=== PATIENT | female | born 1990 | race Caucasian/White ===

== ENCOUNTER 2017-08-05 16:49 | Outpatient (CLI) | payer OTHER ==
--- NOTE | 2017-08-05 19:56 | Magnetic Resonance Report ---
FINAL REPORT EXAM: MR ABDOMEN WO CON HISTORY: APPENDICITIS TECHNIQUE: Multiplanar MRI of the abdomen. No IV contrast administered. PRIORS: None. FINDINGS: Gallbladder and biliary ducts without significant abnormality. Liver, spleen, pancreas, kidneys and adrenal glands without significant abnormality. Visualized bowel grossly unremarkable. No significant free peritoneal fluid or loculated fluid collection. Abdominal aorta is non-aneurysmal. Visualized lung bases grossly unremarkable. IMPRESSION: 1. No acute findings.
--- NOTE | 2017-08-05 20:00 | Magnetic Resonance Report ---
FINAL REPORT EXAM: MR PELVIS WO CON HISTORY: APPENDICITIS TECHNIQUE: Multiplanar MRI of the pelvis. No IV contrast administered. PRIORS: None. FINDINGS: Gravid uterus incidentally noted. Bowel grossly unremarkable. Appendix is not confidently identified, but no significant inflammatory change is seen in the pericecal region. No significant free peritoneal fluid or loculated fluid collection. Abdominal aorta non-aneurysmal. Bony pelvis grossly unremarkable. IMPRESSION: 1. Gravid uterus. 2. Nonvisualization of the appendix, without significant inflammatory sequelae. Clinical correlation with appropriate laboratory values and followup may be warranted.
== END 2017-08-05 16:50 | disposition home or self-care (01) ==
LOC: MRI 16:49
PROVIDERS: ATTEND Surgery
DX: K35.80 Unspecified acute appendicitis (principal)
CPT/HCPCS: 72195; 74181

== ENCOUNTER 2017-09-03 21:27 | Emergency (ER) | payer OTHER ==
--- NOTE | 2017-09-04 01:40 | Emergency Department Report ---
- General Chief complaint: Skin/Abscess/Foreign Body Stated complaint: BOIL Time Seen by Provider: 09/04/17 00:55 Source: patient Mode of arrival: Ambulatory Limitations: No Limitations - History of Present Illness Initial comments: 26-year-old female past medical history none approximately 11 weeks presents with complaint of one month of abscess to right middle buttock. Patient is awake alert and oriented 3 not in acute distress fully lucid. Denies fevers or chills denies any drainage. Urinating and defecating without difficulty. Denies any abdominal pain or vaginal bleeding. States it is approximately the size of a golf ball on her right buttock complaint: abscess/boil Onset/Timin -: month(s) Location: buttocks Severity: moderate Severity scale (0 -10): 5 Quality: aching Consistency: intermittent Improves with: none Worsens with: none Context: none - Related Data Previous Rx's Medication Instructions Recorded Last Taken Type Acetaminophen [Acetaminophen TAB] 500 mg PO Q6HR PRN #30 tablet 09/04/17 Unknown Rx Cephalexin [Keflex] 500 mg PO Q12HR #10 cap 09/04/17 Unknown Rx Allergies Allergy/AdvReac Type Severity Reaction Status Date / Time No Known Allergies Allergy Verified 09/03/17 22:26 Abscess Boil HPI - HPI Chief Complaint: Skin/Abscess/Foreign Body Stated Complaint: BOIL Time Seen by Provider: 09/04/17 00:55 Home Medications: Previous Rx's Medication Instructions Recorded Last Taken Type Acetaminophen [Acetaminophen TAB] 500 mg PO Q6HR PRN #30 tablet 09/04/17 Unknown Rx Cephalexin [Keflex] 500 mg PO Q12HR #10 cap 09/04/17 Unknown Rx Allergies/Adverse Reactions: Allergies Allergy/AdvReac Type Severity Reaction Status Date / Time No Known Allergies Allergy Verified 09/03/17 22:26 ED Review of Systems ROS: Stated complaint: BOIL Other details as noted in HPI Constitutional: denies: chills, fever Eyes: denies: eye pain, eye discharge, vision change ENT: denies: ear pain, throat pain Respiratory: denies: cough, shortness of breath, wheezing Cardiovascular: denies: chest pain, palpitations Endocrine: no symptoms reported Gastrointestinal: denies: abdominal pain, nausea, diarrhea Genitourinary: denies: urgency, dysuria, discharge Musculoskeletal: denies: back pain, joint swelling, arthralgia Skin: as per HPI. denies: rash, lesions Neurological: denies: headache, weakness, paresthesias Psychiatric: denies: anxiety, depression Hematological/Lymphatic: denies: easy bleeding, easy bruising ED Past Medical Hx - Past Medical History Previous Medical History?: No - Surgical History Past Surgical History?: Yes Additional Surgical History: x1 - Social History Smoking Status: Never Smoker Substance Use Type: None - Medications Home Medications: Home Medications Medication Instructions Recorded Confirmed Last Taken Type Acetaminophen [Acetaminophen TAB] 500 mg PO Q6HR PRN #30 tablet 09/04/17 Unknown Rx Cephalexin [Keflex] 500 mg PO Q12HR #10 cap 09/04/17 Unknown Rx ED Physical Exam - General Limitations: No Limitations General appearance: alert, in no apparent distress - Head Head exam: Present: atraumatic, normocephalic - Eye Eye exam: Present: normal appearance, PERRL, EOMI - ENT ENT exam: Present: mucous membranes moist - Neck Neck exam: Present: normal inspection - Respiratory Respiratory exam: Present: normal lung sounds bilaterally. Absent: respiratory distress - Cardiovascular Cardiovascular Exam: Present: regular rate, normal rhythm. Absent: systolic murmur, diastolic murmur, rubs, gallop - GI/Abdominal GI/Abdominal exam: Present: soft, normal bowel sounds - Extremities Exam Extremities exam: Present: normal inspection - Back Exam Back exam: Present: normal inspection - Neurological Exam Neurological exam: Present: alert, oriented X3, CN II-XII intact, normal gait - Psychiatric Psychiatric exam: Present: normal affect, normal mood - Skin Skin exam: Present: warm, dry, intact, normal color. Absent: rash - Expanded Skin Exam Expanded Type of lesion: Present: abscess Description of rash: Present: tenderness, erythematous, fluctuant 1 - Pilonidal abscess here about 5 cm in diameter ED Course Vital Signs 09/03/17 09/03/17 09/04/17 21:42 22:27 01:56 Temperature 99.5 F 99.5 F 99.2 F Pulse Rate 94 H 100 H 81 Respiratory 18 18 16 Rate Blood Pressure 114/63 114/63 Blood Pressure 101/64 [Left] O2 Sat by Pulse 100 99 97 Oximetry - I & D Right Medial Buttocks Type of Procedure: Simple Site: right medial buttock near pilonidal cleft Blade Size: 11 I & D Procedure: betadine prep, gauze wick placed Progress: Area infiltrated with lidocaine 1% with epinephrine. Good local anesthesia achieved. Cleaned with iodine. Single stab incision made approximately 1 cm overlying area of fluctuance. Moderate amount of purulent drainage. Significant decompression achieved via manual decompression. Wound culture sent. Approximately 4 inches of quarter-inch Xeroform gauze placed and wound. Covered with gauze afterward. Procedure tolerated well with minimal bleeding. ED Medical Decision Making - Medical Decision Making A/P: Pilonidal abscess 1-cultures sent 2-incision and drainage successful, patient experienced significant relief of her pain 3-Tylenol when necessary this patient is . Short course Keflex 4- advised patient to remove packing in 12-24 hours or to return to the ED for packing removal Critical care attestation.: If time is entered above; I have spent that time in minutes in the direct care of this critically ill patient, excluding procedure time. ED Disposition Clinical Impression: Pilonidal cyst with abscess, Encounter for incision and drainage procedure Disposition: TO HOME OR SELFCARE Is pt being admited?: No Does the pt Need Aspirin: No Condition: Stable Instructions: Abscess Incision and Drainage (ED), Abscess (ED), Acute Wound Care (ED) Prescriptions: Acetaminophen [Acetaminophen TAB] 500 mg PO Q6HR PRN #30 tablet PRN Reason: Pain , Severe (7-10) Cephalexin [Keflex] 500 mg PO Q12HR #10 cap Referrals: IVON SHORT MD [Primary Care Provider] - 3-5 Days [facility] [Provider Group] - 3-5 Days Forms: Accompanied Note, Work/School Release Form(ED) Time of Disposition: 03:03
[2017-09-04 01:58] VITALS: BP 101/64
[2017-09-04] MEDS ORDERED: TYLENOL PO ONE (02:57)
== END 2017-09-04 03:26 | disposition home or self-care (01) ==
LOC: ED 21:27
DX: O26.891 Other specified pregnancy related conditions, first trimester (principal); L05.01 Pilonidal cyst with abscess; Z3A.11 11 weeks gestation of pregnancy
CPT/HCPCS: 87116

== ENCOUNTER 2018-03-09 09:14 | Inpatient (IN) | payer OTHER ==
[2018-03-09] MEDS ORDERED: PITOCin/NS 20 UNIT/1000ML DRIP 20,000 MILLIUNITS/1,000 ML BAG IV ONE (09:26)
[2018-03-09] MEDS ORDERED: XYLOCAINE 2% INFILTRATI ONE ×2 (09:40)
[2018-03-09] MEDS ORDERED: METHERGINE IM ONE (09:41)
--- NOTE | 2018-03-09 09:58 | History and Physical Report ---
History of Present Illness Date of examination: 03/09/18 Date of admission: 03/09/18 09:14 Chief complaint: contractions History of present illness: 27y/o @ 38+2 weeks presents in active labor with advanced cervical dilation of 6cm and SROM. The patient has a prior history of delivery. She initiated care @ 7 weeks ega. Patient is GBS and HSV II negative. Past History Past Medical History: no pertinent history Past Surgical History: section Social history: - Obstetrical History Expected Date of Delivery: 03/21/18 Actual Gestation: 38 Week(s) 2 Day(s) : 4 Para: 1 Hx # Term Pregnancies: 1 Number of Pregnancies: 0 Spontaneous Abortions: 1 Induced : 1 Number of Living Children: 1 Medications and Allergies Allergies Allergy/AdvReac Type Severity Reaction Status Date / Time No Known Allergies Allergy Verified 09/03/17 22:26 Home Medications Medication Instructions Recorded Confirmed Last Taken Type Amoxicillin 500 mg PO BID #20 capsule 01/09/18 Unknown Rx Review of Systems All systems: negative Genitourinary: vaginal bleeding, leakage of fluid, pelvic pain, contractions - Vital Signs Vital signs: Vital Signs Pulse BP 88 111/56 03/09/18 09:45 03/09/18 09:45 Temp Pulse Resp BP Pulse Ox 88 111/56 03/09/18 09:45 03/09/18 09:45 - Physical Exam Breasts: Positive: deferred Cardiovascular: Regular rate Lungs: Positive: Clear to auscultation Abdomen: Positive: normal appearance Results All other labs normal. Assessment and Plan - Patient Problems (1) Previous delivery affecting Current Visit: Yes Status: Acute Plan to address problem: admit to L&D (2) Active labor at term Current Visit: Yes Status: Acute (3) Spontaneous rupture of membranes Current Visit: Yes Status: Acute
[2018-03-09] MEDS ORDERED: MILK OF MAGNESIA PO PRN (10:02)
[2018-03-09] MEDS ORDERED: TUCKS PAD TP PRN (10:02)
[2018-03-09] MEDS ORDERED: PHENERGAN PO PRN (10:02)
[2018-03-09] MEDS ORDERED: ZOFRAN IV PRN (10:02)
[2018-03-09] MEDS ORDERED: NORCO 5/325 PO PRN (10:02)
[2018-03-09] MEDS ORDERED: BENADRYL PO PRN (10:02)
[2018-03-09] MEDS ORDERED: PHENERGAN PR PRN (10:02)
[2018-03-09] MEDS ORDERED: LANSINOH TP PRN (10:02)
[2018-03-09] MEDS ORDERED: TYLENOL PO PRN (10:02)
[2018-03-09] MEDS ORDERED: DULCOLAX PR PRN (10:02)
--- NOTE | 2018-03-09 10:02 | Procedure Note ---
OB Delivery Note - Delivery Date of Delivery: 03/09/18 Surgeon: CINTHYA MCCONNELL Estimated blood loss: 200cc - Vaginal Delivery presentation: vertex Delivery position: OA Intrapartum events: precipitous labor- <3hr Delivery monitor: external FHT Route of delivery: vacuum extraction Indicators for instrumentation: nonreassuring FHR tracing Delivery placenta: spontaneous Delivery cord: 3 umbilical vessels Episiotomy: none Delivery laceration: 2nd degree Delivery repair: vicryl Anesthesia: local Delivery comments: The patient rapidly progressed to C/C/+2 and began pushing. During her second stage of labor, the tracing demonstrating prolonged bradycardia. A Kiwi vacuum was applied at +3 station and the patient delivered with one set of pulls a liveborn male infant with apgars of 8/9. The infant was bulb suctioned. The cord was clamped and cut and infant placed on the patient's abdomen. The placenta delivered spontaneously intact with a 3VC. The patient sustained a midline 2nd degree laceration. The site was injected with lidocaine and repaired in normal fashion with 2-0 vicryl. Infant weight of 8lbs 6oz. EBL 200ml - Infant A at 1 minute: 8 at 5 minutes: 9 Infant Gender: Male (weight 8lbs 6oz)
[2018-03-09 10:19] LABS: Hematocrit 35.3 % (30.3-42.9); Hemoglobin 11.9 gm/dl (10.1-14.3)
[2018-03-09] MEDS ORDERED: SODIUM CHLORIDE FLUSH SYRINGE 10 ML IV NR (11:00)
[2018-03-09] MEDS: IBUPROFEN PO SCH ×2 (11:51→18:09)
[2018-03-09 20:25] LABS: Hematocrit 30.9 % (30.3-42.9); Hemoglobin 10.5 gm/dl (10.1-14.3)
[2018-03-10] MEDS: IBUPROFEN PO SCH ×3 (00:48→12:42)
--- NOTE | 2018-03-10 08:51 | Progress Note ---
Assessment and Plan A/P PPD 1 s/p doing well routine PP orders Subjective - Subjective Date of service: 03/10/18 Principal diagnosis: s/p Patient reports: appetite normal, voiding normally, pain well controlled, flatus, ambulating normally [place]: doing well Objective - Vital Signs Latest vital signs: Vital Signs Temp Pulse Resp BP BP Pulse Ox 03/10/18 00:00 98.6 F 72 18 118/76 03/09/18 20:00 98.7 F 72 18 102/76 03/09/18 15:44 98.4 F 91 H 18 112/61 03/09/18 12:05 98.1 F 79 18 106/68 98 03/09/18 11:31 78 107/60 03/09/18 11:30 99.3 F 20 03/09/18 11:16 74 111/71 03/09/18 11:01 75 108/66 03/09/18 10:46 74 112/67 03/09/18 10:31 77 104/74 03/09/18 10:16 86 112/57 03/09/18 10:01 78 115/69 03/09/18 09:45 99.2 F 88 20 111/56 Intake and Output 03/09/18 03/10/18 03/10/18 23:59 07:59 15:59 Intake Total 740 200 Output Total 700 Balance 40 200 Intake: Oral 200 200 Intake, Free Water 540 Output: Urine 700 Void 700 Other: Total, Intake Amount 200 200 Total, Output Amount 700 # Voids Void 1 - Exam Breasts: Present: normal Cardiovascular: Present: Regular rate, Normal S1 Lungs: Present: Clear to auscultation, Normal air movement Abdomen: Present: normal appearance, soft, normal bowel sounds. Absent: distention, tenderness, guarding Uterus: Present: normal, firm, fundal height below umbilicus. Absent: bogginess, tenderness Extremities: Present: normal Deep Tendon Reflex Grade: Normal +2
--- NOTE | 2018-03-10 08:58 | Discharge Summary ---
Providers - Providers Date of Admission: 03/09/18 09:14 Date of discharge: 03/10/18 Attending physician: CINTHYA MCCONNELL Primary care physician: IVON SHORT Hospitalization Reason for admission: active labor Delivery: Episiotomy: none Laceration: none Other procedures: none [place] baby: male Condition at discharge: Good Disposition: DC-01 TO HOME OR SELFCARE Plan - Discharge Medications Prescriptions: Ibuprofen [Motrin] 600 mg PO Q8H PRN #30 tablet PRN Reason: Pain oxyCODONE /ACETAMINOPHEN [Percocet 5/325] 1 tab PO Q6HR PRN #30 tablet PRN Reason: Pain - Provider Discharge Summary Activity: routine, no sex for 6 weeks, no strenuous exercise Diet: routine Instructions: routine Additional instructions: [] Smoking cessation referral if applicable(refer to patient education folder for contact #) [] Refer to [facility] Booklet Call your doctor immediately for: * Fever > 100.5 * Heavy vaginal bleeding ( >1 pad per hour) * Severe persistent headache * Shortness of breath * Reddened, hot, painful area to leg or breast * Drainage or odor from incision. * Keep incision clean and dry at all times and follow doctor's instructions regarding bathing/showering - Follow up plan Follow up: IVON SHORT MD [Primary Care Provider] - 04/06/18
[2018-03-10 17:32] VITALS: BP 118/73
== END 2018-03-10 18:00 | disposition home or self-care (01) | DRG 807 ==
LOC: LD 09:14 → OB 12:05
PROVIDERS: ADMIT Obstetrics & Gynecology; ATTEND Obstetrics & Gynecology
PROC: 10D07Z6 Extraction of Products of Conception, Vacuum, Via Natural or Artificial Opening (ICD-10-PCS; principal; 2018-03-09)
PROC: 0KQM0ZZ Repair Perineum Muscle, Open Approach (ICD-10-PCS; 2018-03-09)
DX: O62.3 Precipitate labor (principal); Z37.0 Single live birth; O34.219 Maternal care for unspecified type scar from previous cesarean delivery; O76 Abnormality in fetal heart rate and rhythm complicating labor and delivery; Z3A.38 38 weeks gestation of pregnancy; O70.1 Second degree perineal laceration during delivery
CPT/HCPCS: 36415; 85014; 85018; G0378; J2210; J2590

== ENCOUNTER 2018-05-05 22:15 | Emergency (ER) | payer OTHER | END 2018-05-06 03:00 | disposition left against medical advice (07) | LOC: ED 22:15 ==

== ENCOUNTER 2018-05-07 17:59 | Emergency (ER) | payer OTHER ==
--- NOTE | 2018-05-07 18:11 | Emergency Department Report ---
Blank Doc - Documentation Documentation: This is a 27-year-old female that presents with boil to buttock area. This initial assessment/diagnostic orders/clinical plan/treatment(s) is/are subject to change based on patient's health status, clinical progression and re- assessment by fellow clinical providers in the ED. Further treatment and workup at subsequent clinical providers discretion. Patient/guardians urged not to elope from the ED as their condition may be serious if not clinically assessed and managed. Initial orders include: 1- Patient sent to [facility] for further evaluation and treatment
[2018-05-07 18:14] VITALS: BP 105/70
--- NOTE | 2018-05-07 18:38 | Emergency Department Report ---
Abscess Boil HPI - HPI Chief Complaint: Skin/Abscess/Foreign Body Stated Complaint: ABSCESS Time Seen by Provider: 05/07/18 18:38 Duration: 1 Week Location: Perianal Severity: Severe History: Yes Pain, Yes Previous History, No Fever, No Purulent Drainage, No Numbness, No Foreign Body, No Insect Bite HPI: Patient is a 27-year-old female that presents with a dino-rectal abscess. Patient complains of pain 8 out of 10. Patient states pain is not rating. Pain is a sharp. Pain is worse with movement and sitting on her bottom and better with rest and lying on her side. Patient denies fever and chills. Patient states she's had this before. Home Medications: Previous Rx's Medication Instructions Recorded Last Taken Type Amoxicillin 500 mg PO BID #20 capsule 01/09/18 Unknown Rx Ibuprofen [Motrin] 600 mg PO Q8H PRN #30 tablet 03/10/18 Unknown Rx oxyCODONE /ACETAMINOPHEN [Percocet 1 tab PO Q6HR PRN #30 tablet 03/10/18 Unknown Rx 5/325] Sulfamethoxazole/Trimethoprim 1 each PO BID 10 Days #20 tablet 05/07/18 Unknown Rx [Bactrim DS TAB] Allergies/Adverse Reactions: Allergies Allergy/AdvReac Type Severity Reaction Status Date / Time No Known Allergies Allergy Verified 05/07/18 18:06 ED Review of Systems ROS: Stated complaint: ABSCESS Other details as noted in HPI Constitutional: denies: chills, fever Eyes: denies: eye pain, eye discharge, vision change ENT: denies: ear pain, throat pain Respiratory: denies: cough, shortness of breath, wheezing Cardiovascular: denies: chest pain, palpitations Endocrine: no symptoms reported Gastrointestinal: denies: abdominal pain, nausea, diarrhea Genitourinary: denies: urgency, dysuria, discharge Musculoskeletal: denies: back pain, joint swelling, arthralgia Skin: denies: rash Neurological: denies: headache, weakness, paresthesias Psychiatric: denies: anxiety, depression Hematological/Lymphatic: denies: easy bleeding, easy bruising ED Past Medical Hx - Past Medical History Previous Medical History?: No Hx Hypertension: No Hx Congestive Heart Failure: No Hx Diabetes: No Hx Deep Vein Thrombosis: No Hx Renal Disease: No Hx Sickle Cell Disease: No Hx Seizures: No Hx Asthma: No Hx COPD: No Hx HIV: No - Surgical History Past Surgical History?: Yes Additional Surgical History: x1 - Family History Family history: no significant - Social History Smoking Status: Current Every Day Smoker Substance Use Type: None - Medications Home Medications: Home Medications Medication Instructions Recorded Confirmed Last Taken Type Amoxicillin 500 mg PO BID #20 capsule 01/09/18 Unknown Rx Ibuprofen [Motrin] 600 mg PO Q8H PRN #30 tablet 03/10/18 Unknown Rx oxyCODONE /ACETAMINOPHEN [Percocet 1 tab PO Q6HR PRN #30 tablet 03/10/18 Unknown Rx 5/325] Sulfamethoxazole/Trimethoprim 1 each PO BID 10 Days #20 tablet 05/07/18 Unknown Rx [Bactrim DS TAB] ED Abscess Boil Physical Exam - Exam General: Vital signs noted. No distress. Alert and acting appropriately. Size: 4 cm Exam: Yes Tenderness, Yes Fluctuance, Yes Surrounding Cellulites/Erythema, Yes Normal Neurologic Exam, Yes Normal Circulation Exam: The patient appeared well nourished and normally developed. Vital signs as documented. Head exam is unremarkable. No scleral icterus or corneal arcus noted. Lungs are clear to auscultation and percussion. Cardiac exam reveals. Rhythm is regular. First and second heart sounds normal. No murmurs, rubs or gallops. Abdominal exam reveals normal bowel sounds, no masses, no organomegaly. Extremities are nonedematous and both femoral and pedal pulses are normal. I & D Note - I & D Note I & D Note: PRE-OP DIAGNOSIS: per-rectal abscess. Pilonidal cyst/abscess. POST-OP DIAGNOSIS: Same. PROCEDURE: incision and drainage of abscess. Performing Physician: self. Nurse Sanchez in the room the entire procedure. . PROCEDURE: A timeout protocol was performed prior to initiating the procedure. The area was prepared and draped in the usual, sterile manner. The site was anesthetized with 3ml of 1% lidocaine with epinephrine. A linear incision along the local skin lines was made and the purulent material expressed. The abcess was explored thoroughly and sequestered pockets were opened. Bleeding was minimal. Packing: none. . Followup: The patient tolerated the procedure well without complications. Standard post-procedure care is explained and return precautions are given. ED Course Vital Signs 05/07/18 18:13 Temperature 98.8 F Pulse Rate 80 Respiratory 18 Rate Blood Pressure 105/70 O2 Sat by Pulse 100 Oximetry - Reevaluation(s) Reevaluation #1: Initial evaluation done. Patient will require an I&D. Nurse Laura will be in the room the entire procedure 05/07/18 18:42 Patient tolerated procedure well. Nurse was in the room the entire time. See procedure note. Clinical findings more consistent with a pilonidal cyst with infection. 05/07/18 19:39 Critical care attestation.: If time is entered above; I have spent that time in minutes in the direct care of this critically ill patient, excluding procedure time. ED Medical Decision Making - Medical Decision Making Patient is a 27-year-old female that presents to the Emergency room with a perirectal abscess. Clinical findings consistent with a pilonidal cyst. . Patient had an I&D in the ER. See procedure note. Patient be discharged home with antibiotics. Patient instructed to follow up with primary care in 2-3 days. - Differential Diagnosis abscess ED Disposition Clinical Impression: Perirectal abscess, Pilonidal cyst with abscess Disposition: DC-01 TO HOME OR SELFCARE Is pt being admited?: No Does the pt Need Aspirin: No Condition: Stable Instructions: Abscess (ED) Additional Instructions: Patient to follow-up with primary care in 2-3 days. Patient to return to ER if condition worsens. Patient to take medication as directed. Patient to take Advil or Tylenol when necessary for pain. Patient increase water. Patient to keep the area clean Prescriptions: Sulfamethoxazole/Trimethoprim [Bactrim DS TAB] 1 each PO BID 10 Days #20 tablet Referrals: IVON SHORT MD [Primary Care Provider] - 2-3 Days Time of Disposition: 19:40
[2018-05-07] MEDS ORDERED: XYLOCAINE 1% MPF 5 mL ONE (18:46)
[2018-05-07] MEDS ORDERED: XYLOCAINE 1% MPF 5 mL INFILTRATI ONE (18:53)
== END 2018-05-07 19:46 | disposition home or self-care (01) ==
LOC: ED 17:59
DX: K61.1 Rectal abscess (principal); L05.01 Pilonidal cyst with abscess; F17.200 Nicotine dependence, unspecified, uncomplicated
CPT/HCPCS: 99282

== ENCOUNTER 2021-02-19 20:09 | Emergency (ER) | payer MEDICAID ==
--- NOTE | 2021-02-19 20:43 | XRay Report ---
LEFT ANKLE 3 VIEW(S) INDICATION / CLINICAL INFORMATION: INJURY pain COMPARISON: None available. FINDINGS: BONES / JOINT(S): Probable osteochondral fracture of mid talar dome seen best on mortise view. No sig nificant arthritis. SOFT TISSUES: No significant abnormality. ADDITIONAL FINDINGS: None. Signer Name: Rehan Rowell MD Signed: 02/19/2021 8:38 PM Workstation Name: [id number]
[2021-02-19] MEDS ORDERED: IBUPROFEN 600 MG TAB PO ONE (22:54)
[2021-02-19] MEDS ORDERED: HYDROcodone/ACETAMINOPHEN 7.5-325MG TAB PO ONE (22:54)
[2021-02-19] MEDS ORDERED: ONDANSETRON 4 MG ODT TAB PO ONE (22:54)
--- NOTE | 2021-02-19 23:00 | Emergency Department Report ---
ED Lower Extremity HPI - General Chief Complaint: Extremity Injury, Lower Stated Complaint: TWISTED LEFT ANKLE Source: patient Mode of arrival: Ambulatory Limitations: No Limitations - History of Present Illness Initial Comments: Patient is a 30-year-old -[place] female with no past medical history presents to the ED with complaint of acute onset persistent severe left ankle pain and swelling after she jumped over a box at work and landed on her left ankle in a twisting position over 12 hours ago. Patient states that since then she has not been able to bear weight on the left ankle because of severe pain. Patient denies fall, dizziness, syncope, head or neck injuries, hip pain, back pain, chest pain or shortness of breath, numbness and tingling or weakness of lower extremities bilaterally. MD Complaint: ankle injury (Left ankle pain and swelling) -: Sudden, hour(s) (12), This morning Injury: Ankle: Left (Left ankle pain) Type of Injury: inversion, eversion, other (Twisted left ankle) Place: work Severity: severe Severity scale (0 -10): 8 Improves With: rest Worsens With: weight bearing, movement, palpation Context: jumping (Jumped and twisted left ankle) Associated Symptoms: snap/pop sensation, swelling, able to partially bear weight. denies: numbness, tingling, unable to bear weight, ambulatory - Related Data Previous Rx's Medication Instructions Recorded Last Taken Type Amoxicillin 500 mg PO BID #20 capsule 01/09/18 Unknown Rx Ibuprofen [Motrin] 600 mg PO Q8H PRN #30 tablet 03/10/18 Unknown Rx oxyCODONE /ACETAMINOPHEN [Percocet 1 tab PO Q6HR PRN #30 tablet 03/10/18 Unknown Rx 5/325] Sulfamethoxazole/Trimethoprim 1 each PO BID 10 Days #20 tablet 05/07/18 Unknown Rx [Bactrim DS TAB] Ferrous Sulfate [Ferrous Sulfate 324 mg PO BID #60 tablet. 04/21/19 Unknown Rx 324 MG] Ibuprofen [Motrin] 800 mg PO Q8HR PRN #60 tablet 04/21/19 Unknown Rx oxyCODONE /ACETAMINOPHEN [Percocet 1 tab PO Q6HR PRN #30 tablet 04/21/19 Unknown Rx 5/325] HYDROcodone/APAP 7.5-325 [[place] 1 each PO Q6HR PRN #12 tablet 02/19/21 Unknown Rx 7.5/325] Ibuprofen [Motrin] 600 mg PO Q8H PRN #30 tablet 02/19/21 Unknown Rx Allergies Allergy/AdvReac Type Severity Reaction Status Date / Time No Known Allergies Allergy Verified 05/07/18 18:06 ED Review of Systems ROS: Stated complaint: TWISTED LEFT ANKLE Other details as noted in HPI Constitutional: denies: chills, fever Eyes: denies: eye pain, eye discharge, vision change ENT: denies: ear pain, throat pain Respiratory: denies: cough, shortness of breath, wheezing Cardiovascular: denies: chest pain, palpitations Endocrine: no symptoms reported Gastrointestinal: denies: abdominal pain, nausea, diarrhea Genitourinary: denies: urgency, dysuria, discharge Musculoskeletal: joint swelling, arthralgia (Left ankle pain and swelling). denies: back pain Skin: denies: rash, lesions Neurological: denies: headache, weakness, paresthesias Psychiatric: denies: anxiety, depression Hematological/Lymphatic: denies: easy bleeding, easy bruising ED Past Medical Hx - Past Medical History Previous Medical History?: No Hx Hypertension: No Hx Heart Attack/AMI: No Hx Congestive Heart Failure: No Hx Diabetes: No Hx Deep Vein Thrombosis: No Hx Liver Disease: No Hx Renal Disease: No Hx Sickle Cell Disease: No Hx Seizures: No Hx Asthma: No Hx COPD: No Hx HIV: No - Surgical History Past Surgical History?: Yes Hx Pacemaker: No Hx Internal Defibrillator: No Additional Surgical History: 2011. 2019 - Social History Smoking Status: Never Smoker - Medications Home Medications: Home Medications Medication Instructions Recorded Confirmed Last Taken Type Amoxicillin 500 mg PO BID #20 capsule 01/09/18 04/19/19 Unknown Rx Ibuprofen [Motrin] 600 mg PO Q8H PRN #30 tablet 03/10/18 04/19/19 Unknown Rx oxyCODONE /ACETAMINOPHEN [Percocet 1 tab PO Q6HR PRN #30 tablet 03/10/18 04/19/19 Unknown Rx 5/325] Sulfamethoxazole/Trimethoprim 1 each PO BID 10 Days #20 tablet 05/07/18 04/19/19 Unknown Rx [Bactrim DS TAB] Ferrous Sulfate [Ferrous Sulfate 324 mg PO BID #60 04/21/19 Unknown Rx 324 MG] Ibuprofen [Motrin] 800 mg PO Q8HR PRN #60 tablet 04/21/19 Unknown Rx oxyCODONE /ACETAMINOPHEN [Percocet 1 tab PO Q6HR PRN #30 tablet 04/21/19 U nknown Rx 5/325] HYDROcodone/APAP 7.5-325 [[place] 1 each PO Q6HR PRN #12 tablet 02/19/21 Unknown Rx 7.5/325] Ibuprofen [Motrin] 600 mg PO Q8H PRN #30 tablet 02/19/21 Unknown Rx ED Physical Exam - General Limitations: No Limitations General appearance: alert, in no apparent distress - Head Head exam: Present: atraumatic, normocephalic, normal inspection - Eye Eye exam: Present: normal appearance, PERRL, EOMI. Absent: scleral icterus, conjunctival injection, nystagmus, periorbital swelling, periorbital tenderness Pupils: Present: normal accommodation - ENT ENT exam: Present: normal exam, normal orophraynx, mucous membranes moist, TM's normal bilaterally, normal external ear exam - Neck Neck exam: Present: normal inspection, full ROM. Absent: tenderness, lymphadenopathy - Respiratory Respiratory exam: Present: normal lung sounds bilaterally. Absent: respiratory distress, wheezes, rhonchi, stridor, chest wall tenderness, accessory muscle use, decreased breath sounds, prolonged expiratory - Cardiovascular Cardiovascular Exam: Present: regular rate, normal rhythm, normal heart sounds. Absent: systolic murmur, diastolic murmur, rubs, gallop - GI/Abdominal GI/Abdominal exam: Present: soft, normal bowel sounds. Absent: distended, tenderness, guarding, rebound, hyperactive bowel sounds, hypoactive bowel sounds, organomegaly - Extremities Exam Extremities exam: Present: normal inspection, full ROM, tenderness (Palpable left ankle tenderness with limited range of motion due to pain), normal capillary refill, joint swelling (Mild left ankle swelling). Absent: pedal edema, calf tenderness - Back Exam Back exam: Present: normal inspection, full ROM. Absent: tenderness, CVA tenderness (R), CVA tenderness (L), muscle spasm, paraspinal tenderness, vertebral tenderness - Neurological Exam Neurological exam: Present: alert, oriented X3, CN II-XII intact, normal gait, reflexes normal - Psychiatric Psychiatric exam: Present: normal affect, normal mood - Skin Skin exam: Present: warm, dry, intact, normal color. Absent: rash ED Course Vital Signs 02/19/21 20:12 Temperature 98.5 F Pulse Rate 68 Respiratory 18 Rate Blood Pressure 102/54 [Right] O2 Sat by Pulse 100 Oximetry ED Lower Extremity MDM - Radiology Data Radiology results: report reviewed, image reviewed [facility] [address] [place] [address] XRay Report Signed Patient: GARETH PICKENS R#: [id number] : 1990 Acct:[id number] Age/Sex: 30 / F ADM Date: 02/19/21 Loc: ED Attending Dr: Ordering Physician: ALEXIS JENKINS MD Date of Service: 02/19/21 Procedure(s): XR ankle 3+V LT Accession Number(s): [id number] cc: ED MD ALICE Fluoro Time In Minutes: LEFT ANKLE 3 VIEW(S) INDICATION / CLINICAL INFORMATION: INJURY pain COMPARISON: None available. FINDINGS: BONES / JOINT(S): Probable osteochondral fracture of mid talar dome seen best on mortise view. No significant arthritis. SOFT TISSUES: No significant abnormality. ADDITIONAL FINDINGS: None. Signer Name: Rehan Rowell MD Signed: 02/19/2021 8:38 PM Workstation Name: [id number] Transcribed By: TL Dictated By: Rehan Rowell MD Electronically Authenticated By: Rehan Rowell MD Signed Date/Time: 02/19/212037 DD/ 36 TD/TT: - Medical Decision Making This is a 30-year-old -[place] female with no past medical history presents to the ED with complaint of acute onset persistent severe left ankle pain and swelling after she jumped over a box at work and landed on her left ankle in a twisting position over 12 hours ago. Patient states that since then she has not been able to bear weight on the left ankle because of severe pain. In the ED, patient is alert and oriented x3 and is not in any distress. Patient was treated for pain in the ED. Left ankle x-ray showed probable osteochondral fracture of mid talar dome seen best on mortise view. No significant arthritis. Patient left ankle was splinted with a sugar tong splint and the patient fitted with crutches. Patient will discharge home on medications and a referral to the orthopedic surgeon Dr. Barron for further evaluation. Patient is advised to contact abdominal diagnosis first thing in the morning on Tuesday, February 23, 2021 to schedule a follow-up appointment. - Differential Diagnosis Ankle fracture; ankle contusion; ankle sprain; ligament injury Critical care attestation.: If time is entered above; I have spent that time in minutes in the direct care of this critically ill patient, excluding procedure time. ED Disposition Clinical Impression: Fracture of left talus Qualifiers: Encounter type: initial encounter Fracture type: closed Talus location: dome of talus Fracture alignment: nondisplaced Qualified Code(s): S92.145A - Nondisplaced dome fracture of left talus, initial encounter for closed fracture Closed left ankle fracture Qualifiers: Encounter type: initial encounter Qualified Code(s): S82.892A - Other fracture of left lower leg, initial encounter for closed fracture Injury of left ankle Qualifiers: Encounter type: initial encounter Qualified Code(s): S99.912A - Unspecified injury of left ankle, initial encounter Disposition: 01 HOME / SELF CARE / HOMELESS Is pt being admited?: No Does the pt Need Aspirin: No Condition: Stable Instructions: Cast or Splint Care, Adult, [id number], Ankle Fracture Rehab- Sports[facility], Ankle Fracture, [id number] Additional Instructions: Your left ankle x-ray showed a nondisplaced subtalar fracture of the left ankle. Therefore take pain medications with food, drink plenty of fluids and follow- up with the orthopedic surgeon Dr. Barron for further evaluation in 3 to [address] Barron's office first thing on Tuesday, February 23, 2021 to schedule a follow-up appointment. Return to the ED immediately if symptoms get worse. Prescriptions: Ibuprofen [Motrin] 600 mg PO Q8H PRN #30 tablet PRN Reason: Pain HYDROcodone/APAP 7.5-325 [Crawford 7.5/325] 1 each PO Q6HR PRN #12 tablet PRN Reason: Pain Referrals: CATERINA BARRON MD [Staff Physician] - 3-5 Days Forms: Work/School Release Form(ED) Time of Disposition: 23:06 Print Language: ARMENIAN
[2021-02-20 00:43] VITALS: BP 107/67
== END 2021-02-20 02:00 | disposition home or self-care (01) ==
LOC: ED 20:09
DX: S92.145A Nondisplaced dome fracture of left talus, initial encounter for closed fracture (principal); S82.892A Other fracture of left lower leg, initial encounter for closed fracture; Z79.899 Other long term (current) drug therapy; W22.8XXA Striking against or struck by other objects, initial encounter; Y93.89 Activity, other specified; Y92.89 Other specified places as the place of occurrence of the external cause; Y99.8 Other external cause status
CPT/HCPCS: 99283; J3490; Q0162

== ENCOUNTER 2021-02-21 15:13 | Emergency (ER) | payer MEDICAID ==
[2021-02-21 16:06] VITALS: BP 103/70
--- NOTE | 2021-02-21 16:25 | Emergency Department Report ---
ED General Adult HPI - General Chief complaint: Extremity Injury, Lower Stated complaint: PAIN TO FOOT Time Seen by Provider: 02/21/21 16:06 Source: patient Mode of arrival: Ambulatory Limitations: Physical Limitation - History of Present Illness Initial comments: 30-year-old -[place] female patient presents with complaints of worsening swelling to her foot after being seen here on 02/19/2021. Patient was diagnosed with a possible talar dome fracture after a jump injury. She was placed in a ankle stirrup splint and discharged home with follow-up with Ortho. Patient states she has not been icing or elevating her leg and has been doing a great deal of walking. She states there is some tingling in the foot and pain in her toes since she has been seen here. No skin color changes Severity scale (0 -10): 6 - Related Data Previous Rx's Medication Instructions Recorded Last Taken Type Amoxicillin 500 mg PO BID #20 capsule 01/09/18 Unknown Rx Ibuprofen [Motrin] 600 mg PO Q8H PRN #30 tablet 03/10/18 Unknown Rx oxyCODONE /ACETAMINOPHEN [Percocet 1 tab PO Q6HR PRN #30 tablet 03/10/18 Unknown Rx 5/325] Sulfamethoxazole/Trimethoprim 1 each PO BID 10 Days #20 tablet 05/07/18 Unknown Rx [Bactrim DS TAB] Ferrous Sulfate [Ferrous Sulfate 324 mg PO BID #60 tablet. 04/21/19 Unknown Rx 324 MG] Ibuprofen [Motrin] 800 mg PO Q8HR PRN #60 tablet 04/21/19 Unknown Rx oxyCODONE /ACETAMINOPHEN [Percocet 1 tab PO Q6HR PRN #30 tablet 04/21/19 Unknown Rx 5/325] HYDROcodone/APAP 7.5-325 [Eckert 1 each PO Q6HR PRN #12 tablet 02/19/21 Unknown Rx 7.5/325] Ibuprofen [Motrin] 600 mg PO Q8H PRN #30 tablet 02/19/21 Unknown Rx Allergies Allergy/AdvReac Type Severity Reaction Status Date / Time No Known Allergies Allergy Verified 02/21/21 15:59 ED Review of Systems ROS: Stated complaint: PAIN TO FOOT Other details as noted in HPI Musculoskeletal: joint swelling, arthralgia Skin: denies: change in color Neurological: paresthesias. denies: numbness ED Past Medical Hx - Past Medical History Hx Hypertension: No Hx Heart Attack/AMI: No Hx Congestive Heart Failure: No Hx Diabetes: No Hx Deep Vein Thrombosis: No Hx Liver Disease: No Hx Renal Disease: No Hx Sickle Cell Disease: No Hx Seizures: No Hx Asthma: No Hx COPD: No Hx HIV: No - Surgical History Hx Pacemaker: No Hx Internal Defibrillator: No Additional Surgical History: 2011. CSECTION 2019 - Social History Smoking Status: Never Smoker - Medications Home Medications: Home Medications Medication Instructions Recorded Confirmed Last Taken Type Amoxicillin 500 mg PO BID #20 capsule 01/09/18 04/19/19 Unknown Rx Ibuprofen [Motrin] 600 mg PO Q8H PRN #30 tablet 03/10/18 04/19/19 Unknown Rx oxyCODONE /ACETAMINOPHEN [Percocet 1 tab PO Q6HR PRN #30 tablet 03/10/18 04/19/19 Unknown Rx 5/325] Sulfamethoxazole/Trimethoprim 1 each PO BID 10 Days #20 tablet 05/07/18 04/19/19 Unknown Rx [Bactrim DS TAB] Ferrous Sulfate [Ferrous Sulfate 324 mg PO BID #60 tablet. 04/21/19 Unknown Rx 324 MG] Ibuprofen [Motrin] 800 mg PO Q8HR PRN #60 tablet 04/21/19 Unknown Rx oxyCODONE /ACETAMINOPHEN [Percocet 1 tab PO Q6HR PRN #30 tablet 04/21/19 Unknown Rx 5/325] HYDROcodone/APAP 7.5-325 [Eckert 1 each PO Q6HR PRN #12 tablet 02/19/21 Unknown Rx 7.5/325] Ibuprofen [Motrin] 600 mg PO Q8H PRN #30 tablet 02/19/21 Unknown Rx ED Physical Exam - General Limitations: Physical Limitation General appearance: alert, in no apparent distress - Head Head exam: Present: atraumatic, normocephalic - Extremities Exam Extremities exam: Present: other (Ankle stirrup splint noted to left ankle-re moved. There is mild soft swelling of the left forefoot and toes noted without skin changes; normal sensation and perfusion is noted of the toes with normal pedal pulses no swelling of the ankle or lower leg is noted; area is mildly tender to touch) - Neurological Exam Neurological exam: Present: alert, oriented X3 - Psychiatric Psychiatric exam: Present: normal affect, normal mood - Skin Skin exam: Present: warm, dry, intact, normal color. Absent: rash ED Course Vital Signs 02/21/21 16:01 Temperature 98.6 F Pulse Rate 66 Respiratory 20 Rate Blood Pressure 103/70 [Right] O2 Sat by Pulse 98 Oximetry ED Medical Decision Making - Medical Decision Making 30-year-old -[place] female patient presents with complaints of worsening swelling to her foot after being seen here on 02/19/2021. Patient was diagnosed with a possible talar dome fracture after a jump injury. She was placed in a ankle stirrup splint and discharged home with follow-up with Ortho. Patient states she has not been icing or elevating her leg and has been doing a great deal of walking. She states there is some tingling in the foot and pain in her toes since she has been seen here. No skin color changes Ankle stirrup splint removed and leg elevated here in ED. Swelling has improved and patient states her pain has improved in addition to this. Ankle splint replaced and importance of elevation and icing was discussed with patient who verbalizes understanding. She is still to follow-up with orthopedics as instructed at last visit. No signs of compartment syndrome noted. Patient is well-appearing, her vitals are normal, she stable for discharge discussed again in great detail signs and symptoms that should prompt immediate return to ED, patient verbalized understanding Critical care attestation.: If time is entered above; I have spent that time in minutes in the direct care of this critically ill patient, excluding procedure time. ED Disposition Clinical Impression: Swelling of left foot Disposition: HOME / SELF CARE / HOMELESS Is pt being admited?: No Condition: Stable Instructions: RICE Therapy for Routine Care of Injuries, [id number] Additional Instructions: Please follow-up with content development specialist as instructed at your visit on 02/19/2021
[2021-02-21] MEDS ORDERED: IBUPROFEN 800 MG TAB PO STA (16:26)
[2021-02-21] MEDS ORDERED: HYDROcodone/ACETAMINOPHEN 5-325 MG TAB PO ONE (16:26)
== END 2021-02-21 17:03 | disposition home or self-care (01) ==
LOC: ED 15:13
DX: R22.42 Localized swelling, mass and lump, left lower limb (principal)
CPT/HCPCS: 99282

== ENCOUNTER 2021-10-13 04:37 | Emergency (ER) | payer MEDICAID ==
[2021-10-13] MEDS ORDERED: oxyCODONE /ACETAMINOPHEN 5-325MG TAB PO ONE (09:17)
[2021-10-13] MEDS ORDERED: LIDOCAINE (2%) 20 MG/1 ML VIAL 20 ML MDV INFILTRATI ONE (09:17)
[2021-10-13] MEDS ORDERED: CLINDAMYCIN 150 MG/ML VIAL 6 ML IM ONE (09:19)
--- NOTE | 2021-10-13 10:14 | Emergency Department Report ---
Abscess Boil HPI - HPI Chief Complaint: Skin/Abscess/Foreign Body Stated Complaint: ABSCESS ON BUTTOCKS Time Seen by Provider: 10/13/21 08:20 Home Medications: Previous Rx's Medication Instructions Recorded Last Taken Type Amoxicillin 500 mg PO BID #20 capsule 01/09/18 Unknown Rx Ibuprofen [Motrin] 600 mg PO Q8H PRN #30 tablet 03/10/18 Unknown Rx oxyCODONE /ACETAMINOPHEN [Percocet 1 tab PO Q6HR PRN #30 tablet 03/10/18 Unknown Rx 5/325] Sulfamethoxazole/Trimethoprim 1 each PO BID 10 Days #20 tablet 05/07/18 Unknown Rx [Bactrim DS TAB] Ferrous Sulfate [Ferrous Sulfate 324 mg PO BID #60 tablet. 04/21/19 Unknown Rx 324 MG] Ibuprofen [Motrin] 800 mg PO Q8HR PRN #60 tablet 04/21/19 Unknown Rx oxyCODONE /ACETAMINOPHEN [Percocet 1 tab PO Q6HR PRN #30 tablet 04/21/19 Unknown Rx 5/325] HYDROcodone/APAP 7.5-325 [[place] 1 each PO Q6HR PRN #12 tablet 02/19/21 Unknown Rx 7.5/325] Ibuprofen [Motrin] 600 mg PO Q8H PRN #30 tablet 02/19/21 Unknown Rx Allergies/Adverse Reactions: Allergies Allergy/AdvReac Type Severity Reaction Status Date / Time No Known Allergies Allergy Verified 02/21/21 15:59 ED Review of Systems ROS: Stated complaint: ABSCESS ON BUTTOCKS Other details as noted in HPI Comment: All other systems reviewed and negative ED Past Medical Hx - Past Medical History Previous Medical History?: No Hx Hypertension: No Hx Heart Attack/AMI: No Hx Congestive Heart Failure: No Hx Diabetes: No Hx Deep Vein Thrombosis: No Hx Liver Disease: No Hx Renal Disease: No Hx Sickle Cell Disease: No Hx Seizures: No Hx Asthma: No Hx COPD: No Hx HIV: No - Surgical History Past Surgical History?: Yes Hx Pacemaker: No Hx Internal Defibrillator: No Additional Surgical History: 2011. CSECTION 2019 - Family History Family history: no significant - Social History Smoking Status: Never Smoker - Medications Home Medications: Home Medications Medication Instructions Recorded Confirmed Last Taken Type Amoxicillin 500 mg PO BID #20 capsule 18 04/19/19 Unknown Rx Ibuprofen [Motrin] 600 mg PO Q8H PRN #30 tablet 03/10/18 04/19/19 Unknown Rx oxyCODONE /ACETAMINOPHEN [Percocet 1 tab PO Q6HR PRN #30 tablet 03/10/18 04/19/19 Unknown Rx 5/325] Sulfamethoxazole/Trimethoprim 1 each PO BID 10 Days #20 tablet 05/07/18 04/19/19 Unknown Rx [Bactrim DS TAB] Ferrous Sulfate [Ferrous Sulfate 324 mg PO BID #60 tablet. 04/21/19 Unknown Rx 324 MG] Ibuprofen [Motrin] 800 mg PO Q8HR PRN #60 tablet 04/21/19 Unknown Rx oxyCODONE /ACETAMINOPHEN [Percocet 1 tab PO Q6HR PRN #30 tablet 04/21/19 Unknown Rx 5/325] HYDROcodone/APAP 7.5-325 [[place] 1 each PO Q6HR PRN #12 tablet 02/19/21 Unknown Rx 7.5/325] Ibuprofen [Motrin] 600 mg PO Q8H PRN #30 tablet 02/19/21 Unknown Rx ED Abscess Boil Physical Exam - Exam General: Vital signs noted. No distress. Alert and acting appropriately. Size: 4 cm Exam: Yes Tenderness, Yes Fluctuance, Yes Normal Neurologic Exam, Yes Normal Circulation, No Surrounding Cellulites/Erythema, No Lymphangitis, No Crepitation, No Heart Murmur ED Course Vital Signs 10/13/21 05:15 Temperature 98.8 F Pulse Rate 100 H Respiratory 18 Rate Blood Pressure 114/80 O2 Sat by Pulse 96 Oximetry Critical care attestation.: If time is entered above; I have spent that time in minutes in the direct care of this critically ill patient, excluding procedure time. ED Disposition Clinical Impression: Abscess Disposition: 01 HOME / SELF CARE / HOMELESS Is pt being admited?: No Does the pt Need Aspirin: No Condition: Stable Instructions: Skin Abscess Additional Instructions: epsom salt soaks in tub 20 min 3 times per day med as ordered today follow up with Dr Olmstead as we discussed referral below over the counter motrin and tylenol for pain Referrals: EZEKIEL OLMSTEAD MD [Staff Physician] - 3-5 Days Forms: Work/School Release Form(ED) Time of Disposition: 10:12
[2021-10-13 10:46] VITALS: BP 122/75
== END 2021-10-13 17:07 | disposition home or self-care (01) ==
LOC: ED 04:37
DX: L02.31 Cutaneous abscess of buttock (principal)
CPT/HCPCS: 99282; J3490

== ENCOUNTER 2021-10-22 06:09 | Day surgery (SDC) | payer MEDICAID ==
[~2021-10-22 06:09] MED LIST: ceFAZolin/STERILE WATER 2 GM/20 ML SYRINGE IV NR
[2021-10-22] MEDS ORDERED: LACTATED RINGERS 1,000 ML ONE ×2 (06:28→08:42)
--- NOTE | 2021-10-22 07:31 | Anesthesia Day of Surgery ---
Anesthesia Day of Surgery - Day of Surgery Patient Examined: Yes Patient H&P Reviewed: Yes Patient is NPO: Yes
--- NOTE | 2021-10-22 07:31 | Anesthesia Consultation ---
Anesthesia Consult and Med Hx Date of service: 10/22/21 - Airway Anesthetic Teeth Evaluation: Good ROM Head & Neck: Adequate Mental/Hyoid Distance: Adequate Mallampati Class: Class I Intubation Access Assessment: Good - Pre-Operative Health Status ASA Pre-Surgery Classification: ASA2 Proposed Anesthetic Plan: General - Pulmonary Hx Smoking: No Hx Asthma: No Hx Respiratory Symptoms: No SOB: No COPD: No Hx Pneumonia: No Hx Sleep Apnea: No - Cardiovascular System Hx Hypertension: No Hx Coronary Artery Disease: No Hx Heart Attack/AMI: No Hx Angina: No Hx Percutaneous Transluminal Coronary Angioplasty (PTCA): No Hx Cardia Arrhythmia: No Hx Pacemaker: No Hx Internal Defibrillator: No Hx Valvular Heart Disease: No Hx Heart Murmur: No Hx Peripheral Vascular Disease: No - Central Nervous System Hx Neuromuscular Disorder: No Hx Seizures: No CVA: No Hx Back Pain: Yes Hx Psychiatric Problems: Yes - Gastrointestinal Hx Ulcer: No Hx Gastroesophageal Reflux Disease: Yes - Endocrine Hx Renal Disease: No Hx End Stage Renal Disease: No Hx Cirrhosis: No Hx Liver Disease: No Hx Insulin Dependent Diabetes: No Hx Non-Insulin Dependent Diabetes: No Hx Thyroid Disease: No Hx Hypothyroidism: No Hx Hyperthyroidism: No - Hematic Hx Anemia: Yes Hx Sickle Cell Disease: No - Other Systems Hx Alcohol Use: Yes (SOCIAL) Hx Substance Use: Yes (marijuana daily) Hx Cancer: No Hx Obesity: No
[2021-10-22] MEDS ORDERED: BUPIVACAINE/PF (0.25%) 2.5 MG/ML 30 ML VIAL INFILTRATI ONE ×2 (07:33→09:05)
[2021-10-22] MEDS ORDERED: LIDOCAINE (1%) 10 MG/1 ML VIAL 20 ML MDV ONE (07:33)
[2021-10-22] MEDS ORDERED: GABAPENTIN 300 MG CAP ONE (07:37)
[2021-10-22] MEDS ORDERED: FAMOTIDINE 20 MG/2 ML INJ IV ONE (07:37)
[2021-10-22] MEDS ORDERED: LACTATED RINGERS 1,000 ML IV SCH (07:45)
[2021-10-22] MEDS ORDERED: propofoL 200 MG/20 ML VIAL IV ONE (07:59)
[2021-10-22] MEDS ORDERED: HYDROmorphone 1 MG/1 ML INJ ONE (07:59)
[2021-10-22] MEDS ORDERED: SCOPOLAMINE TRANSDERMAL PATCH 72 HR TD NR (08:00)
[2021-10-22] MEDS ORDERED: MIDAZOLAM 2 MG/2 ML INJ IV NR (08:00)
[2021-10-22] MEDS ORDERED: GABAPENTIN 300 MG CAP PO NR (08:00)
[2021-10-22] MEDS ORDERED: CELECOXIB 200 MG CAP PO NR (08:00)
[2021-10-22] MEDS ORDERED: FAMOTIDINE 20 MG/2 ML INJ IV NR (08:00)
[2021-10-22] MEDS ORDERED: METHYLENE BLUE 50 MG/10 ML AMP ONE (08:04)
[2021-10-22] MEDS ORDERED: HYDROGEN PEROXIDE 118 ML SOLUTION ONE (08:04)
[2021-10-22] MEDS ORDERED: GLYCOPYRROLATE 0.4 MG/2 ML INJ ONE ×2 (08:28→09:05)
[2021-10-22] MEDS ORDERED: ROCURONIUM 50 MG/5 ML INJ IV ONE (08:28)
[2021-10-22] MEDS ORDERED: dexAMETHasone 20 MG/5 ML VIAL ONE (08:29)
[2021-10-22] MEDS ORDERED: LIDOCAINE (1%) 10 MG/1 ML VIAL 20 ML MDV INFILTRATI ONE (09:04)
[2021-10-22] MEDS ORDERED: NEOSTIGMINE 10MG/10 ML INJ MDV ONE (09:05)
[2021-10-22] MEDS ORDERED: METHYLENE BLUE 50 MG/10 ML AMP IV ONE (09:06)
[2021-10-22] MEDS ORDERED: KETOROLAC 30 MG/1 ML INJ ONE (09:07)
[2021-10-22] MEDS ORDERED: HYDROGEN PEROXIDE 118 ML SOLUTION TP ONE (09:07)
[2021-10-22] MEDS ORDERED: ONDANSETRON 4 MG/2 ML INJ ONE (09:07)
[2021-10-22] MEDS ORDERED: ONDANSETRON 4 MG/2 ML INJ IV PRN (09:37)
[2021-10-22] MEDS ORDERED: HYDROmorphone 0.5 MG/0.5 ML INJ IV PRN ×2 (09:37)
--- NOTE | 2021-10-22 10:07 | Short Stay Summary ---
Short Stay Documentation Date of service: 10/22/21 - History H&P: obtained from office - Allergies and Medications Current Medications: Allergies No Known Allergies Allergy (Verified 10/20/21 16:53) Home Medications Medication Instructions Recorded Confirmed Last Taken Type Clindamycin [Clindamycin CAP] 300 mg PO Q8H #30 cap 10/13/21 10/20/21 Unknown Rx Active Medications Cefazolin Sodium (Cefazolin/Sterile Water 2 Gm/20 Ml Syringe) 2 gm IV PREOP NR Stop: 10/22/21 23:59 Lactated Ringer's (Lactated Ringers) 1,000 mls @ 100 mls/hr IV DIRECT ADELIA Stop: 10/22/21 23:00 Last Admin: 10/22/21 07:15 Dose: 100 mls/hr Midazolam HCl (Midazolam 2 Mg/2 Ml Inj) 2 mg IV PREOP NR Stop: 10/22/21 23:59 Last Admin: 10/22/21 07:54 Dose: 2 mg Scopolamine (Scopolamine Transdermal Patch 72 Hr) 1 each TD PREOP NR Stop: 10/22/21 23:00 Last Admin: 10/22/21 07:30 Dose: 1 each - Brief post op/procedure progress note Date of procedure: 10/22/21 Pre-op diagnosis: Pilonidal cyst abscess Post-op diagnosis: same Procedure: Excision of pilonidal cyst abscess and examination under anesthesia Anesthesia: GETA Findings: Pilonidal cyst abscess low midline extending to the gluteal cleft. No evidence of fistula of the anus. Surgeon: FLOR NICOLE Estimated blood loss: minimal Pathology: list (Pilonidal cyst abscess) Specimen disposition: to lab Condition: stable - Disposition Condition at discharge: Good Disposition: 01 HOME / SELF CARE / HOMELESS Short Stay Discharge Plan Activity: no restrictions Weight Bearing Status: Full Weight Bearing Diet: regular Wound: other (Sitz bath 3 times daily and as needed) Follow up with: IVON SHORT MD [Primary Care Provider] - 7 Days FLOR NICOLE MD [Staff Physician] - 7 Days Prescriptions: HYDROcodone/APAP 5-325 [Bayard 5/325] 1 each PO Q6HR PRN #14 PRN Reason: Pain
--- NOTE | 2021-10-22 10:10 | Operative Report ---
Operative Report Operative Report: Date of procedure: 10/22/2021 Preop diagnosis: Pilonidal cyst and subcutaneous fistula track Postop diagnosis: Same Procedure: Excision of pilonidal cyst and subcutaneous fistula Surgeon: Dr. Tran Anesthesia: General endotracheal anesthesia Specimen: Pilonidal cyst and fistula tract Estimated blood loss: 10 cc Findings: This patient has a diagnosis of pilonidal cyst with fistula tract with multiple prior infections. The patient is taken to the OR under general endotracheal anesthesia placed in a prone position. Timeouts and consents are on the chart. Patient received 2 g of Ancef IV. The area of the pilonidal cyst is prepped with Betadine and draped in a sterile fashion. Rectal exam performed and a bivalve anoscope was used to examine the rectal mucosa. Hydroperoxide is then injected into the abscess no hydroperoxide is noted in the rectum or anal mucosa. Endoscope is removed. The opening of the fistula is cannulated with an Angiocath catheter and injected with less than a half a cc of methylene blue. A scalpel was then used to make a elliptical incision through the skin. Electrocautery was used to dissect the pilonidal cyst and all of the associated fistula tract. The wound is irrigated copious amounts of saline. Wound is closed with 2-0 Vicryl for the subcutaneous tissue. 4-0 Monocryl was used for the skin. Dermabond was used over this. A Zipline Steri-Strip reinforcement was placed on the surface. A pressure dressing is placed over the the incision.
[2021-10-22] MEDS ORDERED: HYDROcodone/ACETAMINOPHEN 5-325 MG TAB PO PRN (10:18)
[2021-10-22 11:01] VITALS: BP 112/68
--- NOTE | 2021-10-22 16:42 | Post Anesthesia Evaluation ---
- Post Anesthesia Evaluation Patient Participated: Yes Airway Patent: Yes Stable Respiratory Function: Yes Nausea/Vomiting: No Temp > 96.8F: Yes Pain Manageable: Yes Adequeate Hydration: Yes Anesthesia Complications: No Block Receding Appropriately: Not Applicable Patient on Ventilator: No
== END 2021-10-22 10:50 | disposition home or self-care (01) ==
LOC: OR 06:09
PROVIDERS: ATTEND Surgery
DX: L05.91 Pilonidal cyst without abscess (principal); G43.909 Migraine, unspecified, not intractable, without status migrainosus; K21.9 Gastro-esophageal reflux disease without esophagitis; F31.9 Bipolar disorder, unspecified; F41.9 Anxiety disorder, unspecified; D64.9 Anemia, unspecified; Z72.89 Other problems related to lifestyle; Z98.891 History of uterine scar from previous surgery; Z87.440 Personal history of urinary (tract) infections; Z79.899 Other long term (current) drug therapy; Z98.890 Other specified postprocedural states
CPT/HCPCS: 11771; 88304; J0690; J1100; J1170; J1815; J1885; J2250; J2704; J2710; J3490; J7120; Q9968; J2405